=== PATIENT | female | born 2000 | race Asian ===

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

== ENCOUNTER 2021-05-22 22:25 | Emergency (ER) | payer OTHER ==
[~2021-05-22] VITALS: Ht 170.2 cm; Wt 57.6 kg
[2021-05-23 02:00] LABS: PLATELET COUNT 213 K/uL (152-353)
[2021-05-23 02:07] LABS: POTASSIUM 3.5 mmol/L (3.6-5.2)
[2021-05-23 02:53] VITALS: BP 135/89; TEMP 98
== END 2021-05-23 02:53 | disposition home or self-care (01) ==
LOC: ED 22:25
PROVIDERS: Emergency Medicine Emergency Medical Services
DX: R11.10 Vomiting, unspecified (principal)
CPT/HCPCS: 36415; 80048; 85027; 96360; 99284